=== PATIENT | male | born 1955 | race Caucasian/White ===

== ENCOUNTER 2024-01-26 13:43 | Outpatient (AMB) | payer MEDICARE, OTHER, SELFPAY ==
--- NOTE | 2024-01-26 14:07 | A.SPINEOV_ITS ---
Vital Signs 01/26/24 14:08 Height 5 ft 11 in Weight 180 lb BMI 25.1 Intake Visit Reasons: back pain Intake Note: Mr. Greenfield is here today c/o Legs and Feet numbness while standing and walking. 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 He has been suffering from back pain for a long time for which he received multiple injections. He currently is complaining of his perineal area legs and feet are getting numb when he walks or stands for short time. He also loses his balance. The numbness is associated with discomfort. The following conservative treatment options were tried without improvement tylenol, physician guided home exercise plan, cortisone shots PMH: Hypertension, diabetes, right knee replacement Medications: Metformin, metoprolol, sertraline, pantoprazole, lisinopril, simvastatin, trazodone and vitamin-D Allergies: NKDA Social history: . Nonsmoker Physical Exam: Pleasant male. Height 5'11 weight 180 lb. He ambulates with a flexed position. 2 minutes after ambulating he develops numbness down his legs and perianal area that improves when he sits down. Neurological exam at that time reviews diffuse numbness of the bilateral legs and feet that resolves after sitting. No motor weakness. No pathological reflexes Radiological Studies: MRI done at [place] on 09/09/2023 shows an L3-4 spondylolisthesis, a centrally disc herniation causing severe central spinal stenosis with compression of the bilateral L4 nerve roots in the lateral recess. In addition there is lumbar degenerative disc disease L4-5 and L5-S1. I also reviewed x-ray reports of 2020 that did not mentioned spondylolisthesis. The last x-ray report of this year does mentioned an L3-4 spondylolisthesis. I repeated the x-rays today that indeed shows a grade 1 L3-4 spondylolisthesis wit hout instability. Impression/Plan: This patient is suffering from neurogenic claudication due to severe L3-4 spinal stenosis. The spinal stenosis is caused by a combination of a lumbar spondylolisthesis, a central herniated disc and degeneration. The patient denies back pain. There is no instability with flexion-extension. Therefore I think that an L3-4 decompression with removal of the disc herniation is the appropriate approach to address the neurogenic claudication symptoms. I scheduled him from February 14 due to the seriousness of his numbness in the perianal area. He will get preoperative clearance from his primary care physician. Thank you for allowing me to participate in your patients care. total time spent was 60 minutes in counseling ,coordination of plan, personal r eview of imaging, surgical decision making and subsequent plan Nj Castrejon MD, PhD [facility] Trained Neurosurgeon Director, [facility] Orders: Orders XR lumbar spine 4V min Today M43.16 - Spondylolisthesis, lumbar region Coding Level of Care Code New Pt Level 5 (13400) Diagnoses Spondylolisthesis of lumbar region M43.16 Lumbar stenosis with neurogenic claudication M48.062
[2024-01-26 14:08] VITALS: BMI 25.1
== END 2024-01-26 16:52 | disposition home or self-care (01) ==
PROVIDERS: Visit Provider Neurological Surgery
DX: M43.16 Spondylolisthesis, lumbar region (principal); M48.062 Spinal stenosis, lumbar region with neurogenic claudication
CPT/HCPCS: 99205

== ENCOUNTER 2024-01-26 13:43 | Outpatient (REF) | payer MEDICARE, OTHER, SELFPAY ==
--- NOTE | ~2024-01-26 | XR_ITS ---
EXAMINATION: XR LUMBAR SPINE CLINICAL INDICATION: Spondylolisthesis lumbar region, best images obtainable due to patient's swaying per technologist statement. COMPARISON: None available. TECHNIQUE: 4 views of the lumbar spine inclusive of flexion and extension views. FINDINGS: Dextroscoliosis of the lumbar spine. Multilevel facet arthritis. Advanced multilevel lumbar spondylosis with loss of disc space height most notable at L3-L4, L4-L5, and L5-S1. Grade 1 anterolisthesis of L3 on L4 with flexion and extension. XR/XR lumbar spine 4V min IMPRESSION: Advanced multilevel lumbar spondylosis. Electronically signed by: Aline Villarreal MD 03/20/2024 10:53 AM BENJ[facility]
== END 2024-01-26 13:44 | disposition home or self-care (01) ==
LOC: HO.XRAY 13:43
PROVIDERS: Visit Provider Neurological Surgery
DX: M43.16 Spondylolisthesis, lumbar region (principal); M48.062 Spinal stenosis, lumbar region with neurogenic claudication
CPT/HCPCS: 72110; 99202

== ENCOUNTER 2024-02-15 09:27 | Day surgery (SDC) | payer MEDICARE, OTHER, SELFPAY ==
--- NOTE | 2024-02-06 | ECG_ITS ---
Test Reason : pre op Blood Pressure : / mmHG Vent. Rate : 063 BPM Atrial Rate : 063 BPM P-R Int : 140 ms QRS Dur : 098 ms QT Int : 454 ms P-R-T Axes : 053 051 053 degrees QTc Int : 464 ms Normal sinus rhythm Normal ECG No previous ECGs available Referred By: Joanne Lea Electronically Signed By:DIALLO BLAKE
[2024-02-06 12:23] VITALS: BP 153/74; PULSE 66; RESP 18; O2SAT 99; BMI 25.1
--- NOTE | 2024-02-06 12:35 | P.CONAN_ITS ---
Documented by User: Joanne Lea NP 02/13/24 14:36 HPI - Anesthesia Eval Consult details Narrative: 69yo M for L3-4 Lumbar Decompression, 02/15/24 No recent illness No CP/SOB. Activity limited by LE symptoms HTN: 2 x rx DM: Does not check POC, A1C <6% 12/2023 GERD: ppi controlls PMFSH Active Problems Active Problems: All Active Problems Lumbar stenosis with neurogenic claudication (Acute) Spondylolisthesis of lumbar region (Acute) Past Medical History Medical History Inguinal hernia Anxiety Spinal stenosis Basal cell carcinoma Osteoarthrosis Back pain Diabetes GERD (gastroesophageal reflux disease) Elevated cholesterol HTN (hypertension) Family History Family history of problems with anesthesia: No Surgical History Surgical History History of esophagogastroduodenoscopy (EGD) H/O colonoscopy Hx of tonsillectomy History of total right knee replacement History of Problems with Anesthesia: No Social History Social History Are you a primary direct care specialist to a significant other at home: No Do you presently have visiting nurse or other home services: No Patient Tobacco Use Status: Former Tobacco user Tobacco use type: Cigarette Years Smoked: 20 Use of substances other than those prescribed or required for medical reasons: No Have you been hit, kicked, punched, or otherwise hurt by someone within the past year? If so, by whom?: No Spiritual Healthcare Practices: none Roman Catholic Healthcare Practices: none Cultural Healthcare Practices: none Are you DNR?: No Advance Directives Information Provided: Yes (as above noted) Advance Directives on File: No Recently lost weight without trying: No Eating poorly because of decreased appetite: No Nutrition Risks: No Nutritional Risk Poor oral hygiene: No (extracted tooth lower left/crowns) Meds Allergies Allergy/AdvReac Type Severity Reaction Status Date / Time No Known Allergies Allergy Verified 02/15/24 09:49 Home Medications ?Medication ?Instructions ?Recorded ?Confirmed ?Last Taken ?Type ergocalciferol (vitamin D2) 1,250 1,250 mcg PO QWEEK 01/26/24 02/06/24 Unknown History mcg (50,000 unit) capsule lisinopril 10 mg tablet 10 mg PO QAM 01/26/24 02/06/24 Unknown History metformin 500 mg tablet 500 mg PO BID 01/26/24 02/06/24 Unknown History pantoprazole 40 mg tablet,delayed 40 mg PO QAM 01/26/24 02/06/24 02/15/24 History release sertraline 25 mg tablet 25 mg PO QAM 01/26/24 02/06/24 Unknown History simvastatin 20 mg tablet 20 mg PO BEDTIME 01/26/24 02/06/24 Unknown History trazodone 50 mg tablet 50 mg PO BEDTIME 01/26/24 02/06/24 Unknown History metoprolol succinate 50 mg 50 mg PO QAM 02/06/24 02/06/24 02/15/24 History tablet,extended release 24 hr Exam Height,Weight and Vital Signs: Height 5 ft 11 in Weight 81.647 kg Last Vital Signs Pulse 66 02/06/24 12:23 Resp 18 02/06/24 12:23 BP 153/74 H 02/06/24 12:23 Pulse Ox 99 02/06/24 12:23 O2 Del Method Room Air 02/06/24 12:23 Pertinent Lab Results Pertinent Lab Results: Lab Results 02/06/24 Range/Units 13:04 WBC 7.3 (4.8-10.8) X10*3/uL RBC 5.49 (4.60-5.80) X10*6/uL Hgb 15.7 (14.0-18.0) g/dl Hct 45.9 (42.0-52.0) % MCV 83.6 (80.0-98.0) fL MCH 28.6 (27.0-33.0) pg MCHC 34.2 (31.0-36.0) g/dl RDW 12.6 (11.0-16.0) % Plt Count 247 (160-400) X10*3/uL MPV 9.2 L (9.4-12.4) fL Absolute Nucleated RBC 0.000 (0.0-0.012) X10*3/uL Nucleated RBC % (auto) 0.0 (0.0-0.2) /100WBC Sodium 140 (135-145) mmol/L Potassium 4.3 (3.3-5.1) mmol/L Chloride 103 (96-108) mmol/L Carbon Dioxide 28 (22-29) mmol/L Anion Gap 13 (12-20) BUN 13 (9-16) mg/dL Creatinine 0.82 (0.5-1.4) mg/dL Estim Creat Clear Calc 91.8 Estimated GFR > 60 Random Glucose 118 H (60-115) mg/dL Calcium 10.5 H (8.4-10.2) mg/dL Narrative Narrative: EKG 01/2024 Vent. Rate : 063 BPM Atrial Rate : 063 BPM P-R Int : 140 ms QRS Dur : 098 ms QT Int : 454 ms P-R-T Axes : 053 051 053 degrees QTc Int : 464 ms Normal sinus rhythm Normal ECG No previous ECGs available Airway Mallampati Class: III TM Dist: >3cm Neck ROM: Full Loose/Missing/Broken Teeth: Yes (1 x molar missing, crowned molars) Heart: RRR Lungs: CTAB Assessment and Plan Assessment Anesthesia Assessment: Anesthesia Plan Discussed and PAT Visit Final Anesthetic Review Family History of Problems with Anesthesia: No History of Problems with Anesthesia: No Documented by User: Debbie Zhang MD 02/15/24 09:58 [facility] Past Medical History Medical History Inguinal hernia Anxiety Spinal stenosis Basal cell carcinoma Osteoarthrosis Back pain Diabetes GERD (gastroesophageal reflux disease) Elevated cholesterol HTN (hypertension) Surgical History Surgical History History of esophagogastroduodenoscopy (EGD) H/O colonoscopy Hx of tonsillectomy History of total right knee replacement Social History Social History Are you a primary direct care specialist to a significant other at home: No Do you presently have visiting nurse or other home services: No Patient Tobacco Use Status: Former Tobacco user Tobacco use type: Cigarette Years Smoked: 20 Use of substances other than those prescribed or required for medical reasons: No Have you been hit, kicked, punched, or otherwise hurt by someone within the past year? If so, by whom?: No Spiritual Healthcare Practices: none Roman Catholic Healthcare Practices: none Cultural Healthcare Practices: none Are you DNR?: No Advance Directives Information Provided: Yes (as above noted) Advance Directives on File: No Recently lost weight without trying: No Eating poorly because of decreased appetite: No Nutrition Risks: No Nutritional Risk Poor oral hygiene: No (extracted tooth lower left/crowns) Meds Allergies Allergy/AdvReac Type Severity Reaction Status Date / Time No Known Allergies Allergy Verified 02/15/24 09:49 Home Medications ?Medication ?Instructions ?Recorded ?Confirmed ?Last Taken ?Type ergocalciferol (vitamin D2) 1,250 1,250 mcg PO QWEEK 01/26/24 02/06/24 Unknown History mcg (50,000 unit) capsule lisinopril 10 mg tablet 10 mg PO QAM 01/26/24 02/06/24 Unknown History metformin 500 mg tablet 500 mg PO BID 01/26/24 02/06/24 Unknown History pantoprazole 40 mg tablet,delayed 40 mg PO QAM 01/26/24 02/06/24 02/15/24 History release sertraline 25 mg tablet 25 mg PO QAM 01/26/24 02/06/24 Unknown History simvastatin 20 mg tablet 20 mg PO BEDTIME 01/26/24 02/06/24 Unknown History trazodone 50 mg tablet 50 mg PO BEDTIME 01/26/24 02/06/24 Unknown History metoprolol succinate 50 mg 50 mg PO QAM 02/06/24 02/06/24 02/15/24 History tablet,extended release 24 hr Assessment and Plan Final Anesthetic Review NPO: Yes ASA Class: III Final Preanesthetic Review: No Changes in Pt Med Stat, Meds/Allgs Chart Reviewed, Consent Obtained/Reviewed and Anes Risks/Benef Reviewed Patient Risk: Intermediate Procedure Risk: Intermediate Anesthetic Plan Anesthetic Plan: GA Disposition: Standard PACU
[2024-02-06 13:46] LABS: Hematocrit 45.9 % (42.0-52.0); Hemoglobin 15.7 g/dl (14.0-18.0); Mean Corpuscular HGB Conc 34.2 g/dl (31.0-36.0); Mean Corpuscular Hemoglobin 28.6 pg (27.0-33.0); Mean Corpuscular Volume 83.6 fL (80.0-98.0); Mean Platelet Volume 9.2 fL (9.4-12.4); Platelet Count 247 X10*3/uL (160-400); Red Blood Count 5.49 X10*6/uL (4.60-5.80); Red Cell Distribution Width 12.6 % (11.0-16.0); White Blood Count 7.3 X10*3/uL (4.8-10.8)
[2024-02-06 17:57] LABS: Anion Gap 13 (12-20); Blood Urea Nitrogen 13 mg/dL (9-16); Calcium 10.5 mg/dL (8.4-10.2); Carbon Dioxide 28 mmol/L (22-29); Chloride 103 mmol/L (96-108); Creatinine Clr Calc Pharmacy 91.8; Estimated Glomerular Filt Rate > 60; Glucose Random 118 mg/dL (60-115); Potassium 4.3 mmol/L (3.3-5.1); Sodium 140 mmol/L (135-145)
[2024-02-15] VITALS (7 sets, daily range): BP systolic 127–147; BP diastolic 51–90; PULSE 57–84; RESP 16–18; TEMP 36.1–36.7; O2SAT 98–99; BMI 25.1
--- NOTE | 2024-02-15 09:48 | MHC.SHP ---
Pre-Procedural Eval Section A - 24 Hr Update-Section A only Date of Service: 02/15/24 The patient is an INPATIENT: No Section B - Complete if H&P > 30 days Chief Complaint: Spinal stenosis, lumbar region,Spondylolisthesis Allergies: Allergies Allergy/AdvReac Type Severity Reaction Status Date / Time No Known Allergies Allergy Verified 01/26/24 14:07 Review of Systems Sugical H&P ROS: Negative: Constitution, Cardiovascular, Respiratory, Neurological, Psychiatric, Hem-Onc, Allergic/Immunologic, Gastrointestinal, Genitourinary, Musculoskeletal, Integumentary, Endocrine and Eyes/Ears/Nose/Throat Exam Surgical H&P Exam: Normal: HEENT, Normal: Heart, Normal: Lungs, Normal: Extremities, Normal: Abdomen, Normal: Skin and Normal: Neurological (Awake, alert) Plan I have reviewed the history and physical and performed a pertinent physical examination on my patient. No changes have occurred unless specified. L3-4 decompression and removal of disc herniation Time Spent With Patient Time: Total time managing care of this patient today __5__ minutes.
[2024-02-15] MEDS: Lactated Ringers 1,000 ML 100 ML IVCONT (09:54)
[2024-02-15 10:02] LABS: Glucose, Whole Blood 128 mg/dL (60-115)
[2024-02-15] MEDS: Gabapentin 300 MG CAPSULE PO (10:43)
[2024-02-15] MEDS: methocarbamoL 750 MG TABLET PO (10:43)
--- NOTE | 2024-02-15 13:07 | W.PM.OPN ---
Operative Note Operative Note Date of Service: 02/15/24 Narrative: Preoperative Diagnosis: L3-4 spinal stenosis/lateral recess stenosis/neural foraminal stenosis Operation: L3-4 Laminotomy, Partial facetectomy and foraminotomy with use of microscope Consent Informed Consent was obtained for this operation. I have explained the nature, purpose and benefits of the operation. I have discussed the risks and benefit of the operation including possible complications or adverse events with patient/family. Alternative(s) were discussed with the patient with their relative benefits and risks as well as the consequences of not accepting the operation were included in obtaining consent. Surgeon: BRAD RUIZ MD, PHD Procedure Assisted By: Rolando Castelan Description of Procedure This patient is suffering from bilateral leg pain and numbness due to severe L3-4 spinal stenosis caused by degeneration, spondylolisthesis with an extruded disc bulge. He denies significant back pain and therefore we offered him a decompression instead of fusion but he may still require fusion in the future if the decompression is not successful. The procedure and complications were explained. The patient was consented. The patient was brought to the operating room and endotracheally intubated. The patient was turned in prone position on the [place] frame. Prep and drape was done followed by timeout. The Physician home based assistant provided access. A mid lumbar incision was made followed by release of the paravertebral muscle on the right side to expose the L3-4 lamina and facet joints. An intraoperative x-ray was obtained to confirm the correct level. The microscope was brought in. I took over the procedure. The high-speed drill was used to do a right L3-4 laminotomy until flavum ligament was reached. A #2 Kerrison was used to expand the laminotomy near flush to the pedicles and to include a partial facetectomy. The flavum ligament was opened and resected with a #3 Kerrison to decompress the underlying thecal sac. 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 I was able to retract the nerve root medially to expose the underlying disc bulge. It became clear that the extruded disc bulge was result of the spondylolisthesis and not a soft disc herniation per se that could be removed. The patient was turned contralaterally. The spinous process was undercut and in this way I was able to decompress the contralateral side where there was also severe lateral recess stenosis encountered. The flavum ligament was removed to decompress the lateral recesses and the exiting L4 nerve roots bilaterally. A long nerve hook could be easily passed along the medial side of the pedicles as a sign of adequate decompression. The microscope was removed. Hemostasis was done. The physician home based assistant close the incision in 2 layers. Steri-Strips were used to approximate incision. An OpSite with Tegaderm was used to cover the incision. All sponge needle counts were correct. Patient was extubated and transported in stable is to recovery room. Anesthesia: General Estimated Blood Loss (ml): 40 Complications: None Duration of Surgery: Under 70 Minutes Postoperative Plan: Discharge to home
--- NOTE | 2024-02-15 13:15 | P.DS_ITS ---
DS: Providers Provider Date of Service: 02/15/24 Primary care physician: Unknown Physician DS: Summary Time Attestation Discharge Coordination Time (in mins): 14 Quality: Safe Use of Opioids Does Pt have an Active Cancer Diagnosis on the Problem List?: No Quality: Stroke Does the patient have a stroke diagnosis?: No Physical Exam Vital Signs: Vital Signs: Last Vital Signs Temp 98.0 F 02/15/24 10:17 Pulse 84 02/15/24 10:17 Resp 18 02/15/24 10:17 BP 147/90 H 02/15/24 10:17 Pulse Ox 98 02/15/24 10:17 O2 Del Method Room Air 02/15/24 10:17 BMI result Body Mass Index 25.1 DS: Data Data Completed and Pending Labs on day of discharge: Laboratory Results - last 24 hr 02/15/24 09:57 POC Glucose 128 H Discharge Plan Discharge Patient Disposition: Home, Self-Care Referrals: Physician,Unknown J [Primary Care Provider] - 1 Week Discharge Medications: New oxycodone 5 mg tablet 5 mg PO Q6H PRN (Reason: severe pain (scale score 7-10)) Qty: 30 0RF Rx Instructions: Partial Fill upon patient request. Continued metoprolol succinate 50 mg tablet extended release 24 hr 50 mg PO QAM metformin 500 mg tablet 500 mg PO BID trazodone 50 mg tablet 50 mg PO BEDTIME pantoprazole 40 mg tablet,delayed release (DR/EC) 40 mg PO QAM simvastatin 20 mg tablet 20 mg PO BEDTIME sertraline 25 mg tablet 25 mg PO QAM lisinopril 10 mg tablet 10 mg PO QAM ergocalciferol (vitamin D2) 1,250 mcg (50,000 unit) capsule 1,250 mcg PO QWEEK Discharge Orders: Discharge Order (Routine); Ordered 02/15/24 Ordered By: Rolando Weinstein Diet: Advance to usual diet Activity on Discharge: As tolerated Activity Restrictions/Additional Instructions: After your spinal surgery we ask you to observe the following restrictions/guidelines: Activity: It is normal to feel some discomfort as you increase your activity, but that will improve with time. We ask you avoid heavy lifting or acitivities that cause pain. As a general rule, 8lbs is a safe limit for lifting right after surgery. Walk as much as you feel comfortable but not to exhaustion. You will feel extra tired the first few days after surgery. Stay well hydrated. It is OK to walk up and down stairs You may return to driving when you are off narcotics (such as vicodin, oxycodone, dilaudid, etc), and you are back to normal functional capacity. If you have any concerns please check with office before driving. Return to work is specific to each patient and each surgery, so please speak with your doctor/PA at first follow up. Please bring paperwork such as FMLA at that time if you need it filled out. Medications: We recommend you take 1,000mg Tylenol every 8 hours for the first few weeks after surgery, if you do not have any liver issues and can tolerate this medication. Do not exceed 4,000mg daily. We will give you a short supply of narcotics after surgery (usually one weeks worth). If you need more please call the office but do not use more than prescribed. You will need to give our office 48 hours notice if you need narcotics refilled and we do not fill narcotics on weekends or evenings. If you are on a narcotic, it is a good idea to take a stool softener such as colace or senna to avoid constipation If you take blood thinner such as aspirin, Plavix, Coumadin, Effient, Eliquis etc for conditions such as Afib, DVT, Pulmonary embolus, coronary disease, stents etc please speak with your surgeon about specific details as to when you can resume these medications. You can resume NSAIDs on post op day 1 (eg: Motrin, Naproxen, etc). Follow up: Please call the office, , after surgery to arrange a 3 week follow up for wound check. Wound Care: You may remove your dressing on the first day after surgery. ?You may ?leave open to air. Please do not remove the steri strips underneath. they will fall off on their own in one week. IT IS NORMAL FOR THE WOUND TO OOZE OR BE BLOODY FOR A FEW DAYS AFTER SURGERY. ?IF THIS HAPPENS JUST PLACE NEW DRESSING OVER IT TO AVOID STAINING CLOTHES. You may shower on post op day # 1 We ask that you do not let the water soak the wound. If it does get wet, just towel dry lightly. Please do not scrub your incision or place any type of chemical/ointment on the wound. No tub baths, pools or jacuzzis for one month. If you have any leaking or redness from your wound, or fevers, please call the office. Print Language: [place]
== END 2024-02-15 15:02 | disposition home or self-care (01) ==
PROVIDERS: Nurse Practitioner; Visit Provider Neurological Surgery
PROC: (CPT 63047; principal; 2024-02-15 13:00)
DX: M48.062 Spinal stenosis, lumbar region with neurogenic claudication (principal); M43.16 Spondylolisthesis, lumbar region; R20.0 Anesthesia of skin; R26.81 Unsteadiness on feet; I10 Essential (primary) hypertension; E11.9 Type 2 diabetes mellitus without complications; Z79.84 Long term (current) use of oral hypoglycemic drugs; Z79.899 Other long term (current) drug therapy; Z96.651 Presence of right artificial knee joint
CPT/HCPCS: 63047; 36415; 80048; 82947; 85027; 93005; J0131; J0690; J1100; J1885; J2003; J2405; J2704; J3010

== ENCOUNTER → 2024-02-15 09:27 | Outpatient (BNV) | payer MEDICARE, OTHER, SELFPAY | PROVIDERS: Visit Provider Neurological Surgery | DX: M48.062 Spinal stenosis, lumbar region with neurogenic claudication (principal) | CPT/HCPCS: 63047; 99499 ==

== ENCOUNTER 2024-03-07 11:16 | Outpatient (AMB) | payer MEDICARE, OTHER, SELFPAY ==
--- NOTE | 2024-03-07 11:20 | A.SPINEOV_ITS ---
Intake Visit Reasons: 1st post op Intake Note: Mr. Greenfield is here today for his 1st post-op appointment. Director Long Term Care Required: No Allergies No Known Allergies Allergy (Verified 02/15/24 09:49) Assessment & Plan Assessment & Plan (1) Lumbar stenosis with neurogenic claudication: Code(s): M48.062 - Spinal stenosis, lumbar region with neurogenic claudication Category: Medical Plan Operation: L3-4 Laminotomy Cal comes in today for his 1st postoperative visit after having a L3-4 laminotomy completed by our service. To recap he was initially seen in our office after a fall which caused him low back pain and numbness radiating into his bilateral lower extremities. Thankfully, he reports complete resolution of symptoms since his surgery. He overall is very satisfied with the surgery and reports no concerns or complaints. He is essentially back to normal activity at this point. He asked some questions regarding the postoperative healing course which I answered to the best of my ability. No new neurological deficits, the patient ambulates well and rises from a seated position without difficulty. His posterior incision site is closed and well healing. We discussed some general postoperative guidelines including restrictions regarding healing. However, the patient is doing very well from his surgery and there is no need for continued routine follow-up. He may follow-up on as-needed basis. Rolando Castrejon MD,PhD [facility] Coding Level of Care Code Global (85332) Diagnoses Lumbar stenosis with neurogenic claudication M48.062
== END 2024-03-07 11:43 | disposition home or self-care (01) ==
PROVIDERS: Visit Provider Physician Assistant
DX: M48.062 Spinal stenosis, lumbar region with neurogenic claudication (principal)
CPT/HCPCS: 99024

== ENCOUNTER → 2024-03-07 11:16 | Outpatient (BNVA) | payer MEDICARE, OTHER, SELFPAY | PROVIDERS: Visit Provider Physician Assistant | DX: M48.062 Spinal stenosis, lumbar region with neurogenic claudication (principal); Z47.89 Encounter for other orthopedic aftercare; Z98.890 Other specified postprocedural states | CPT/HCPCS: 99212 ==